=== PATIENT | male | born 1955 | race Caucasian/White ===

== ENCOUNTER 2017-01-28 08:35 | Emergency (ER) | payer OTHER ==
[~2017-01-28] VITALS: Ht 182.9 cm; Wt 109.1 kg
[~2017-01-28 08:35] MED LIST: FLEXERIL10 MG; FLEXERIL10 MG PO; IBUPROFEN800 MG; PERCOCET 5/3251 TAB; PERCOCET 5/3251 TAB PO; TYLENOL W/CODEI1 TAB
[2017-01-28] MEDS ORDERED: LIPITOR10 M1 PO (09:32)
[2017-01-28] MEDS ORDERED: PRINIVIL5 M1 PO (09:33)
[2017-01-28] MEDS ORDERED: JANUVIA100 M1 PO (09:33)
[2017-01-28] MEDS ORDERED: AMARYL4 M1 PO (09:33)
[2017-01-28] MEDS ORDERED: GLUCOPHAGE500 M3 PO (09:33)
[2017-01-28] MEDS ORDERED: INVOKANA100 MG PO (09:33)
[2017-01-28] MEDS ORDERED: VITAMIN D31000 UNI3 PO (09:34)
[2017-01-28] MEDS ORDERED: VITAMIN D5000 UNI2 PO (09:34)
[2017-01-28 10:00] LABS: BASO % 0.5 % (0-2); BASO ABSOLUTE COUNT 0.1 tho/cmm (0.0-0.2); EOS % 2.1 % (0-7); EOSINOPHIL ABSOLUTE COUNT 0.2 tho/cmm (0.0-0.7); HCT-HEMATOCRIT 44.3 % (36.0-53.5); HGB-HEMOGLOBIN 14.7 gm/dl (13.5-17.0); IMMATURE GRANULOCYTES ABSOLUTE 0.02 tho/cmm (0-0.03); IMMATURE GRANULOCYTES PERCENT 0.2 % (0-0.3); LYMPH % 22.8 % (20-45); LYMPH ABSOLUTE COUNT 2.1 tho/cmm (0.8-4.5); MCH (MEAN CORPUSCULAR HGB) 27.6 pg (28.0-32.0); MCHC MEAN CORPUSCULAR HGB CONC 33.2 % (32.0-36.0); MCV (MEAN CELL VOLUME) 83.1 fl (82.0-96.0); MEAN PLATELET VOLUME 9.6 cmc (9.4-12.4); MONO % 6.6 % (0-12); MONOCYTE ABSOLUTE COUNT 0.6 tho/cmm (0.0-1.2); NEUTROPHIL ABSOLUTE COUNT 6.3 tho/cmm (1.6-8.0); NEUTROPHIL-AUTOMATED 6.3 tho/cmm (1.6-8.0); NEUTROPHILS % 67.8 % (40-80); PLATELET COUNT 253 tho/cmm (150-450); RED BLOOD COUNT 5.33 mil/cmm (4.40-5.70); RED CELL DISTRIBUTION WIDTH 13.3 % (12.4-16.4); WHITE BLOOD COUNT 9.4 tho/cmm (4.0-10.0)
[2017-01-28 10:17] LABS: ANION GAP 15 mmol/L (0-20); BLOOD UREA NITROGEN 18 mg/dl (6-24); CALCIUM 8.7 mg/dl (8.5-10.5); CARBON DIOXIDE-VENOUS 22 mmol/L (22-32); CHLORIDE 107 mmol/l (96-110); CREATININE 0.81 mg/dl (0.60-1.30); GLUCOSE 166 mg/dL (70-110); POTASSIUM 4.7 mmol/L (3.7-5.1); SODIUM 139 mmol/L (135-145); eGFR VALUE FOR BLACK >90 mL/Min
[2017-01-28] MEDS ORDERED: VALIUM2 M1 PO (11:29)
[2017-01-28] MEDS ORDERED: TRAVEL-EASE25 M1 PO (11:29)
[2017-01-28] MEDS ORDERED: ZOFRAN ODT4 MG PO (11:29)
== END 2017-01-28 11:42 ==
LOC: EDMED 08:35
PROVIDERS: Family Medicine
DX: R42 Dizziness and giddiness (principal); E11.9 Type 2 diabetes mellitus without complications